=== PATIENT | female | born 1950 | race Caucasian/White ===

== ENCOUNTER 2016-08-07 03:44 | Inpatient (IN) | payer OTHER ==
[2016-08-04 15:00] LABS: MCH 30.3 PG (27-31); MCHC 33.3 g/dL (33-37); MCV 90.9 FL (81-99); MPV 10.7 FL (7.4-10.4); RBC 4.29 XMIL (4.2-5.4)
[2016-08-04 15:43] LABS: AGAP 13; BUN 22 mg/dL (8-22); CALCIUM 9.5 mg/dL (8.8-10.2); CHLORIDE 97 mmol/L (98-107); COSMO 278; POTASSIUM 3.7 mmol/L (3.5-5.1); SODIUM 137 mmol/L (136-145); TCO2 27 mmol/L (25-35)
[2016-08-07] MEDS ORDERED: ENTEREG ONE (07:52)
[2016-08-07] MEDS ORDERED: INVANZ 1 GM/NS 50 ML ONE (07:53)
[2016-08-07] MEDS ORDERED: LR 1,000 ML ONE ×2 (07:53→09:51)
[2016-08-07] MEDS ORDERED: MARCAINE 0.25% PF/EPI 1:200,000 ONE (09:51)
[2016-08-07 12:20] LABS: URINE MICRO REVIEW NEEDED? NO; URINE SOURCE CATH
[2016-08-07 12:33] LABS: BILIRUBIN URINE NEGATIVE (NEGATIVE); BLOOD URINE NEGATIVE (NEGATIVE); COLOR YELLOW; GLUCOSE URINE NEGATIVE (NEGATIVE); LEUKOCYTES URINE NEGATIVE (NEGATIVE); NITRITE URINE NEGATIVE (NEGATIVE); PH URINE 5.5; PROTEIN URINE TRACE mg/dL (NEGATIVE); SP GRAVITY URINE 1.019; TURBIDITY URINE CLEAR (CLEAR); UR EPITHELIAL CELLS <10 /HPF (<10); URINE BACTERIA NEGATIVE /HPF; URINE RBC <10 /HPF (<10); URINE WBC <10 /HPF (<10); UROBILINOGEN URINE NORMAL (NORMAL)
[2016-08-07] MEDS ORDERED: 1/2 NS + KCL 20 MEQ 1,000 ML ONE (13:00)
[2016-08-07] MEDS ORDERED: FENTANYL ONE (13:06)
[2016-08-07] MEDS ORDERED: DILAUDID ONE (13:06)
[2016-08-07] MEDS ORDERED: ZOFRAN ONE (13:11)
[2016-08-07] MEDS ORDERED: ROBINUL ONE (13:11)
[2016-08-07] MEDS ORDERED: XYLOCAINE-MPF 2% ONE (13:11)
[2016-08-07] MEDS ORDERED: NEOSTIGMINE ONE (13:11)
[2016-08-07] MEDS ORDERED: EPHEDRINE ONE (13:11)
[2016-08-07] MEDS ORDERED: LR 2,000 ML ONE (13:12)
[2016-08-07] MEDS ORDERED: ZEMURON ONE (13:12)
[2016-08-07] MEDS ORDERED: QUELICIN (DOSE) ONE (13:12)
[2016-08-07] MEDS ORDERED: DECADRON ONE (13:12)
[2016-08-07] MEDS ORDERED: OFIRMEV 1000 MG/ISOTONIC SOLN 200 ML ONE (13:12)
--- NOTE | 2016-08-07 13:19 | OPERATIVE NOTE ---
PROCEDURE DATE: 08/07/2016 PROCEDURE PERFORMED: Laparoscopic assisted mobilization of splenic flexure with open sigmoid colon resection. SURGEON: Ulisses Valenzuela MD FOOD MIXER ASSEMBLER: Zi PREOPERATIVE DIAGNOSES: 1. Sigmoid colon cancer. 2. Extensive diverticulosis. POSTOPERATIVE DIAGNOSES: 1. Sigmoid colon cancer. 2. Extensive diverticulosis. DESCRIPTION OF PROCEDURE: Satisfactory general endotracheal anesthesia was achieved, the patient was placed in Blake stirrups, the abdomen was prepped and draped in a sterile fashion. We made anesthetized the skin just above the umbilicus and scored the fascia, introduced an 11 trocar there we insufflated through this trocar. Under direct visualization introduced a 5 trocar in the right lower quadrant, a 5 trocar in the left mid abdomen, and an 11 mm trocar in the midepigastrium. We placed the patient 1st in Trendelenburg, turned her to the right. We incised the white line of Toldt using the LigaSure down into the pelvis. The adhesions to the fimbria and tubes were completed giving more mobilization to this distal sigmoid and proximal rectum. We then reversed the patient's position into reverse Trendelenburg, and used the LigaSure cephalad toward the splenic flexure. We changed the videolaparoscope to the epigastric trocar site. A used an camp assistant to retract the colon medially and the omentum inferiorly and I used the LigaSure to go up the white line of Toldt and free up the splenic flexure toward the midline. The splenic flexure swept down nicely. I put the patient again in Trendelenburg, raised up the sigmoid and scored the peritoneum on the right side of the sigmoid right down into the pelvis. At this point, I felt it best that we open the patient. So we flattened the patient, desufflated, and removed our trocars. I made a lower midline incision into the abdominal cavity. We placed our Bookwalter retractors. We placed the patient in Trendelenburg once again, packing the small bowel and omentum cephalad. We then continued our incision in the peritoneum into the pelvis. Since we had the splenic flexure down, we had quite a bit of redundant sigmoid and distal left colon. So I chose a spot in the left colon, cleaned off the bowel and divided it with a JOGRE 60 blue cartridge. We then divided the mesentery using the LigaSure ear and ligated the sigmoid vessels with 2-0 silk suture ligature and divided them. This allowed us to swing the sigmoid out of the pelvis. The lesion was in the mid aspect and was marked with blue ink. We then continued our dissection in the mesentery down to a spot that was the distal sigmoid and that would fit the proximal colon or approximate with the proximal colon easily. We then cleaned it off there and placed 3-0 silks at both ends of the bowel and one in the middle and then we amputated the diseased segment of sigmoid. I then proceeded to place the posterior sutures of 3-0 silk. After tying them I then excised the proximal staple line having the 2 ends of bowel [id number] and easily approximated without tension and then used a 3-0 Polysorb running locking stitch posteriorly, changed to a Alex stitch anteriorly, and the final layer was 3-0 silks in a Lembert fashion anteriorly. This completed the 2 layer sewn end-to-end anastomosis. We changed gloves at this point, we copiously irrigated the pelvis, released our retraction removed our laps and laid the small bowel and omentum down toward the pelvis. We looked back in the right upper quadrant. After taking all the retraction away and it was hemostatic. I then proceeded to close the peritoneum with a 2-0 chromic. We closed the fascia with a running #2 Prolene, irrigated out the subcutaneous tissue, and closed the skin with perfecto. I placed a 2-0 Polysorb fascial stitch in the epigastric trocar site. We closed the epigastric trocar site was perfecto and then the two 5 trocar sites were closed with 4-0 Polysorb subcuticular stitches. Sterile dressings were applied. She tolerated it well. ESTIMATED BLOOD LOSS: 100 mL.
[2016-08-07] MEDS ORDERED: ZOFRAN IV PRN (13:30)
[2016-08-07] MEDS: MORPHINE IV PRN (16:59)
[2016-08-07] MEDS: NS + KCL 20 MEQ 1,000 ML IV SCH ×2 (18:59→22:59)
[2016-08-07] MEDS: OFIRMEV 1000 MG/ISOTONIC SOLN 100 ML IV SCH (19:07)
[2016-08-07] MEDS: MELATONIN PO SCH (20:39)
[2016-08-07] MEDS: PERIDEX MT SCH (20:40)
[2016-08-08] MEDS: OFIRMEV 1000 MG/ISOTONIC SOLN 100 ML IV SCH ×4 (00:49→20:27)
[2016-08-08] MEDS: MORPHINE IV PRN (04:21)
[2016-08-08] MEDS: SYNTHROID PO SCH (06:21)
[2016-08-08] MEDS: NS + KCL 20 MEQ 1,000 ML IV SCH ×2 (06:22→17:38)
[2016-08-08 06:27] LABS: HEMATOCRIT 34.4 % (37.0-47.0); HEMOGLOBIN 11.2 g/dL (12.0-16.0); MCH 30.4 PG (27-31); MCHC 32.6 g/dL (33-37); MCV 93.2 FL (81-99); MPV 11.3 FL (7.4-10.4); RBC 3.69 XMIL (4.2-5.4)
[2016-08-08 06:45] LABS: AGAP 13; BUN 12 mg/dL (8-22); CALCIUM 8.7 mg/dL (8.8-10.2); CHLORIDE 101 mmol/L (98-107); COSMO 275; POTASSIUM 4.7 mmol/L (3.5-5.1); SODIUM 136 mmol/L (136-145); TCO2 22 mmol/L (25-35)
--- NOTE | 2016-08-08 07:21 | PROGRESS NOTE ---
DATE: 08/08/2016 SUBJECTIVE: The patient doing well after surgery; some pain but managed currently. The patient denies any nausea. Denies any kind of passage of flatus. OBJECTIVE: Vital Signs: Patient is currently afebrile. Her vital signs have been stable. General: No acute distress. Cardiovascular: Regular rate and rhythm. Lungs: Grossly clear. Abdomen: Soft, nondistended, appropriately tender. Dressings in place. LABORATORY: Reviewed white blood cell count 15.6, hematocrit 34, platelet count 207,000. BMP reviewed and essentially normal. ASSESSMENT AND PLAN: A 66-year-old female, status post sigmoid resection postoperative day #1. Postoperative state: At this time, we will continue routine postoperative care. We will await return of bowel function. Encouraged ambulation and mobilization today. If patient able to mobilize, we will plan on removing her Cali catheter around noon today and monitoring for urine output.
[2016-08-08] MEDS: ZOLOFT PO SCH (08:31)
[2016-08-08] MEDS: LASIX PO SCH (08:32)
[2016-08-08] MEDS: PRINIVIL PO SCH (08:32)
[2016-08-08] MEDS: ENTEREG PO SCH ×2 (08:32→20:27)
[2016-08-08] MEDS: PERIDEX MT SCH ×2 (09:00→20:27)
[2016-08-08] MEDS: MELATONIN PO SCH (20:27)
[2016-08-08] MEDS ORDERED: TUMS PO PRN (20:42)
[2016-08-09] MEDS: NS + KCL 20 MEQ 1,000 ML IV SCH ×3 (02:38→15:41)
[2016-08-09] MEDS: OFIRMEV 1000 MG/ISOTONIC SOLN 100 ML IV SCH ×3 (02:40→15:48)
[2016-08-09] MEDS: SYNTHROID PO SCH (06:14)
--- NOTE | 2016-08-09 07:20 | PROGRESS NOTE ---
DATE: 08/09/2016 SUBJECTIVE: Patient is doing well after surgery. She says she has passed a small amount of bowel movement and passed some flatus. She is denying nausea, vomiting. OBJECTIVE: Vital Signs: Patient is currently afebrile. Her vital signs have been stable. General: No acute distress. Cardiovascular: Regular rate and rhythm. Lungs: Grossly clear. Abdomen: Soft, nondistended. Appropriately tender. Bowel sounds auscultated. LABORATORY: None this morning. ASSESSMENT AND PLAN: A 66-year-old female status post sigmoid resection postoperative day #2. Postoperative day #2. At this time we will start her on a clear liquid diet since she has had some return of bowel function. We will continue to monitor the patient and advance as tolerated.
[2016-08-09] MEDS: ZOLOFT PO SCH (08:21)
[2016-08-09] MEDS: ENTEREG PO SCH ×2 (08:21→20:28)
[2016-08-09] MEDS: LASIX PO SCH (08:21)
[2016-08-09] MEDS: PRINIVIL PO SCH (08:22)
[2016-08-09] MEDS: PERIDEX MT SCH ×2 (13:54→20:28)
[2016-08-09] MEDS ORDERED: TYLENOL PO ONE (19:59)
[2016-08-09] MEDS: MELATONIN PO SCH (20:28)
[2016-08-10] MEDS: NS + KCL 20 MEQ 1,000 ML IV SCH ×2 (00:03→05:40)
[2016-08-10] MEDS: OFIRMEV 1000 MG/ISOTONIC SOLN 100 ML IV SCH ×2 (00:04→04:04)
[2016-08-10] MEDS: SYNTHROID PO SCH ×2 (05:41→06:06)
[2016-08-10] MEDS: TYLENOL PO PRN (05:41)
[2016-08-10] MEDS: PRINIVIL PO SCH (08:09)
[2016-08-10] MEDS: PERIDEX MT SCH ×2 (08:10→21:04)
[2016-08-10] MEDS: LASIX PO SCH (08:10)
[2016-08-10] MEDS: ZOLOFT PO SCH (08:10)
[2016-08-10] MEDS: ENTEREG PO SCH ×2 (08:10→21:04)
[2016-08-10] MEDS: NORCO-5 PO PRN ×2 (11:30→21:04)
[2016-08-10] MEDS: MELATONIN PO SCH (21:04)
[2016-08-11] MEDS: TYLENOL PO PRN (04:43)
[2016-08-11] MEDS: SYNTHROID PO SCH (06:06)
[2016-08-11] MEDS: PERIDEX MT SCH (08:23)
[2016-08-11] MEDS: LASIX PO SCH (08:24)
[2016-08-11] MEDS: PRINIVIL PO SCH (08:24)
[2016-08-11] MEDS: ZOLOFT PO SCH (08:24)
[2016-08-11] MEDS: ENTEREG PO SCH (08:24)
[2016-08-11 12:11] VITALS: BP 138/54
--- NOTE | 2016-08-12 13:14 | DISCHARGE SUMMARY ---
ADMISSION DATE: 08/07/2016 DISCHARGE DATE: 08/11/2016 PRIMARY DISCHARGE DIAGNOSIS: Cancer of the colon and diverticulosis. PRIMARY PROCEDURE: Laparoscopic-assisted splenic flexure mobilization and an open sigmoid colon resection. HISTORY: This is a 66-year-old female sent by Dr. Benjamin Valenzuela and Dr. Rm, who was coincidentally found to have a sigmoid colon cancer. It was inked. She was sent [facility]. Following her home prep she was admitted on the and underwent the above-noted procedure on the . Postoperatively she did well. We did use Entereg to assist with her bowel function. She was seen by Dr. Banerjee over the weekend in my absence, doing well, and put her on liquids and advanced her diet. By the she was placed on solids and tolerated it well, passing flatus. Her wound was fine. It was felt she could be discharged home. She will return to the office in a week for re-evaluation. Wound care, activity and diet were discussed. She will resume her usual medicines. [facility]
== END 2016-08-11 12:34 | disposition home or self-care (01) | DRG 330 ==
LOC: SURHOLD 03:44 → 4N 13:28
PROVIDERS: ADMIT Surgery; ATTEND Surgery
PROC: 0DTN0ZZ Resection of Sigmoid Colon, Open Approach (ICD-10-PCS; principal; 2016-08-07 10:09)
DX: C18.7 Malignant neoplasm of sigmoid colon (principal); G61.0 Guillain-Barre syndrome; K57.30 Diverticulosis of large intestine without perforation or abscess without bleeding; I10 Essential (primary) hypertension; E11.9 Type 2 diabetes mellitus without complications; M19.90 Unspecified osteoarthritis, unspecified site; K21.9 Gastro-esophageal reflux disease without esophagitis; E78.00 Pure hypercholesterolemia, unspecified; E03.9 Hypothyroidism, unspecified; Z79.899 Other long term (current) drug therapy; Z79.84 Long term (current) use of oral hypoglycemic drugs; Z80.0 Family history of malignant neoplasm of digestive organs; Z87.891 Personal history of nicotine dependence; Z80.3 Family history of malignant neoplasm of breast; Z82.49 Family history of ischemic heart disease and other diseases of the circulatory system
CPT/HCPCS: 80048; 81001; 82948; 85027; 88309; 88313; 94761; 94799; J0131; J0330; J1100; J1170; J1335; J2270; J2405; J3010; J3480; J7120; J2710; S0020